=== PATIENT | male | born 1945 | race Caucasian/White ===

== ENCOUNTER 2019-08-15 20:51 | Emergency (ER) | payer MEDICARE, OTHER ==
[~2019-08-15] VITALS: Ht 172.7 cm; Wt 81.2 kg
[~2019-08-15 20:51] MED LIST: ALBU8.5H8 IH
[2019-08-15 21:01] VITALS: BP 136/75
--- NOTE | 2019-08-15 21:16 | NUR ---
PATIENT CAME TO ER BED 9 C/O RIGHT HIP PAIN RADIATING DOWN TO THE RIGHT LOWER EXTREMITY SINCE 3x DAYS AGO. PATIENT DESCRIBES A SHARP 10/10 PAIN THAT HAS BEEN WORSENING. AAOX4. NO SOB. BREATHING EVENLY AND UNLABORED.
--- NOTE | 2019-08-15 21:19 | NUR ---
PATIENT SENT TO CT
[2019-08-15] MEDS ORDERED: KETOROLAC TROMETHAMINE INJ 60 MG/2 ML VIAL IM ONE ×2 (21:20→21:30)
== END 2019-08-15 22:59 | disposition home or self-care (01) ==
LOC: ER 20:53
DX: M51.17 Intervertebral disc disorders with radiculopathy, lumbosacral region (principal); J43.9 Emphysema, unspecified; F17.210 Nicotine dependence, cigarettes, uncomplicated
CPT/HCPCS: 72131; 96372; 99284; 99406; J1885

== ENCOUNTER 2023-03-13 02:04 | Inpatient (IN) | payer MEDICARE, MEDICAID ==
[~2023-03-13] VITALS: Ht 172.7 cm; Wt 79.4 kg
[2023-03-13] MEDS ORDERED: ACETAMINOPHEN ES 500 MG TABLET ONE (02:28)
[2023-03-13] MEDS ORDERED: ACETAMINOPHEN ES 500 MG TABLET PO ONE (02:30)
[2023-03-13] MEDS ORDERED: IV NS 0.9% 1,000 ML BAG IV ONE (02:30)
[2023-03-13 02:53] LABS: HEMATOCRIT 40 % (39-51); HEMOGLOBIN 12.6 g/dL (13.5-17.5)
[2023-03-13 02:56] LABS: APPEARANCE,URINE SLIGHTLY CLOUDY (CLEAR); BILIRUBIN,URINE NEGATIVE (NEGATIVE); BLOOD, URINE 2+ Ery/uL (NEGATIVE); COLOR,URINE YELLOW (YELLOW); KETONES,URINE NEGATIVE (NEGATIVE); LEUKOCYTE ESTERASE ,URINE 1+ (NEGATIVE); NITRITE, URINE POSITIVE (NEGATIVE); PROTEIN,URINE 2+ mg/dl (NEGATIVE); UGLUCOSE NEGATIVE (NEGATIVE)
[2023-03-13 03:02] LABS: BASOPHILS # (AUTO) 0.1 K/uL (0.0-0.2); BASOPHILS % (AUTO) 0.8 % (0.0-2.0); EOSINOPHILS % (AUTO) 0.1 % (0.0-6.0); LYMPHOCYTES % (AUTO) 13.6 % (20.0-44.0); MEAN CORPUSCULAR HEMOGLOBIN 24 PG (26.0-33.0); MEAN CORPUSCULAR HGB CONC 32 g/dl (31.0-36.0); MEAN CORPUSCULAR VOLUME 75 fL (80-96); MONOCYTES # (AUTO) 0.4 K/uL (0.1-1.30); NEUTROPHILS # (AUTO) 5.7 K/uL (1.8-8.9); NEUTROPHILS % (AUTO) 79.5 % (43.0-81.0); PLATELET COUNT (AUTO) 237 K/uL (150-450); RED BLOOD CELL COUNT(AUTO) 5.29 MIL/uL (4.5-6.0); RED CELL DISTRIBUTION WIDTH 16.9 % (11.5-15.0); WHITE BLOOD COUNT (AUTO) 7.2 K/uL (4.3-11.0)
[2023-03-13 03:06] LABS: INR 1.58 (0.91-1.10); PARTIAL THROMBOPLASTIN TIME 33.2 SEC (24.3-34.3); PROTHROMBIN TIME 16.3 SECS (9.2-11.1)
[2023-03-13 03:16] LABS: ADD URINE CULTURE YES; ALANINE AMINOTRANSFERASE 22 U/L (12-78); ALBUMIN 3.1 g/dL (3.4-5.0); ALKALINE PHOSPHATASE 97 U/L (46-116); ASPARTATE AMINOTRANSFERASE 32 U/L (15-37); BACTERIA,URINE 1+ /HPF (None Seen); BILIRUBIN,DIRECT 0.2 mg/dL (0.0-0.2); BILIRUBIN,TOTAL 0.5 mg/dL (0.2-1.0); CALCIUM, SERUM 8.8 mg/dL (8.5-10.1); CARBON DIOXIDE 23 mmol/L (21-32); CHLORIDE 102 mmol/L (98-107); CREATININE 1.8 mg/dL (0.6-1.3); GLUCOSE 156 mg/dL (74-106); POTASSIUM 4.2 mmol/L (3.5-5.1); RBC,URINE 0-2 /HPF (0-2); SODIUM SERUM 134 mmol/L (136-145); SQUAMOUS EPITHELIAL CELL,UR None Seen /HPF (None Seen); TOTAL PROTEIN, SERUM 7.5 g/dL (6.4-8.2); UREA NITROGEN, BLOOD 23 mg/dL (7-18); WBC,URINE 21-50 /HPF (0-3)
[2023-03-13 03:17] LABS: MUCUS,URINE Moderate /LPF (None Seen)
[2023-03-13 03:18] LABS: LACTIC ACID 1.9 mmol/L (0.4-2.0)
[2023-03-13] MEDS ORDERED: CEFTRIAXONE 1GM BAG (ER ONLY) 50 ML IV ONE (03:27)
[2023-03-13] MEDS ORDERED: CEFTRIAXONE 1GM BAG (ER ONLY) 1 GM/50 ML PIGGYBACK IV ONE (03:30)
[2023-03-13] MEDS ORDERED: ALBUTEROL FS 2.5 MG/3 ML VIAL.NEB NEB PRN (05:00)
[2023-03-13] MEDS ORDERED: PANT40TA49 PO (08:17)
[2023-03-13] MEDS ORDERED: TAMS-12 PO (08:17)
[2023-03-13] MEDS ORDERED: ACETAMINOPHEN 325 MG TABLET PO PRN (08:30)
[2023-03-13] MEDS ORDERED: IV LR 1000 ML 1,000 ML IV SCH (08:30)
[2023-03-13] MEDS ORDERED: ONDANSETRON HCL/PF 4 MG/2 ML VIAL IVP PRN (08:30)
[2023-03-13] MEDS ORDERED: PANTOPRAZOLE 40 MG TABLET.DR PO SCH (08:30)
[2023-03-13] MEDS ORDERED: Z GUARD REMEDY 4 OZ OINT TP PRN (08:30)
[2023-03-13 08:50] VITALS: BP 136/77; TEMP 98.4; O2SAT 95
[2023-03-13] MEDS ORDERED: ENOXAPARIN SODIUM 40 MG/0.4 ML DISP.SYRIN SQ SCH (09:00)
== END 2023-03-13 09:10 | disposition left against medical advice (07) | DRG 690 ==
LOC: ER 02:06 → TELE1 08:00
PROVIDERS: ADMIT Nurse Practitioner Acute Care; ATTEND Nurse Practitioner Acute Care
DX: N10 Acute pyelonephritis (principal); N17.0 Acute kidney failure with tubular necrosis; Z20.822 Contact with and (suspected) exposure to COVID-19; Z87.891 Personal history of nicotine dependence; J44.9 Chronic obstructive pulmonary disease, unspecified
CPT/HCPCS: 36415; 71045-TC; 80048-TC; 80076-TC; 81001; 83605-TC; 84484-TC; 85025-TC; 85730-TC; 87040-TC; 87086-TC; C9803; G0378; J0696; J7030; J7120